=== PATIENT | female | born 1975 | race Hispanic/Latino ===

== ENCOUNTER 2021-07-28 09:38 | Emergency (ER) | payer SELFPAY ==
[~2021-07-28] VITALS: Ht 144.8 cm; Wt 65.0 kg
[~2021-07-28 09:38] MED LIST: AMOX/K CLAV500 MG OR; KEFLEX500 MG PO; LORTAB 5 OR; TRIAMCINOLON0.11 EX; VISTARIL25 MG PO
[2021-07-28 09:51] VITALS: BP 150/93
[2021-07-28] MEDS ORDERED: FLOXIN OTIC0.3 % AS (10:45)
[2021-07-28] MEDS ORDERED: CIPROFLOXACN500 MG PO (10:45)
== END 2021-07-28 11:10 | disposition home or self-care (01) | DRG 156 ==
LOC: ED 09:38
DX: H60.92 Unspecified otitis externa, left ear (principal)